=== PATIENT | male | born 1965 | race African-American/Black ===

== ENCOUNTER 2017-01-28 12:13 | Inpatient (IN) | payer MEDICAID ==
[~2017-01-28] VITALS: Ht 167.6 cm; Wt 90.3 kg
[~2017-01-28 12:13] MED LIST: ASPI81CH43 PO; Atorvastatin Calcium PO; CAR3125T PO; ENA2.5T PO; FUR40T PO; POT8T PO
[2017-01-28 12:49] LABS: Basophils # (auto) 0 uL; Basophils % (auto) 0.2 % (0.0-2.0); CONDITION AutoValidated; Eosinophils # (auto) 0.1 uL; Eosinophils % (auto) 0.6 % (0.0-7.0); Hematocrit 40.9 % (41.0-53.0); Hemoglobin 13.9 g/dL (13.5-17.5); Lymphocytes # (auto) 0.6 uL; Lymphocytes % (auto) 6.8 % (10.0-50.0); Mean Corpuscular Hemoglobin 32.2 pg (28.0-32.0); Mean Corpuscular Hgb Conc. 33.8 g/dL (32.0-36.0); Mean Corpuscular Volume 95.2 fL (80.0-100.0); Mean Platelet Volume 10.9 fL (7.4-10.4); Monocytes # (auto) 0.2 uL; Monocytes % (auto) 2.1 % (0.0-12.0); Neutrophils # (auto) 8.1 uL; Neutrophils % (auto) 90.3 % (37.0-80.0); Platelet Count (auto) 230 10^3/uL (140-450); Red Cell Distribution Width 14.5 % (11.6-16.0); SUSPECT SEE PRINTOUT
[2017-01-28 13:23] LABS: Giant Platelets Few; Platelet Estimate Adequate
[2017-01-28 13:29] LABS: Albumin 3.6 g/dL (3.4-5.0); BUN/Creatinine Ratio 14.8; Bilirubin, Total 0.3 mg/dL (0.2-1.0); Calcium 8.9 mg/dL (8.5-10.1); Magnesium 2.3 mg/dL (1.6-2.6); Potassium 4.2 mmol/L (3.5-5.1); Total Protein 7.3 g/dL (6.4-8.2)
[2017-01-28] MEDS ORDERED: HYDROmorphone HCL 2 MG/ML VL IM ONE (15:45)
[2017-01-28] MEDS ORDERED: ASPirin 81 mg TAB PO ONE (15:45)
[2017-01-28] MEDS ORDERED: MORPHINE SULFATE 4 MG/ML SYRG IV ONE (15:45)
[2017-01-28] MEDS ORDERED: ONDANSETRON HCL 4 MG/2 ML VIAL IM ONE (15:45)
[2017-01-28] MEDS ORDERED: ONDANSETRON HCL 4 MG/2 ML VIAL IV ONE (15:45)
[2017-01-28] MEDS ORDERED: diphenhdrAMINE HCL 50 MG/1 ML VL IV ONE (16:30)
[2017-01-28] MEDS ORDERED: LACTULOSE 20Gm/30ML SOLN PO PRN (17:30)
[2017-01-28] MEDS ORDERED: HYDROcodone-ACET 5/325MG TAB PO PRN (17:30)
[2017-01-28] MEDS ORDERED: LORazepam 0.5 MG TAB PO PRN (17:30)
[2017-01-28] MEDS ORDERED: PROMETHAZINE HCL 25 MG/ML 1ML IV PRN (17:30)
[2017-01-28] MEDS ORDERED: TEMAZEPAM 15 MG CAP PO PRN (17:30)
[2017-01-28] MEDS ORDERED: NITROGLYCERIN 0.4 MG SL TAB SL PRN (17:30)
[2017-01-28] MEDS ORDERED: MORPHINE SULF INJ 2 MG/ML SYRINGE 1ML IV PRN ×2 (17:30)
[2017-01-28] MEDS ORDERED: ACETAMINOPHEN 500 MG TAB PO PRN (17:30)
[2017-01-28] MEDS: SODIUM CHLORIDE 0.9% 1,000 ML IV SCH ×2 (17:46→18:06)
[2017-01-28] MEDS ORDERED: POTASSIUM CHLORIDE 8 MEQ TAB PO ONE (18:00)
[2017-01-28] MEDS ORDERED: FUROSEMIDE 40 MG TAB PO ONE (18:00)
[2017-01-28] MEDS ORDERED: ENOXAPARIN SOD 40 MG/0.4 ML SYRINGE SC SCH (18:00)
[2017-01-28] MEDS: PANTOPRAZOLE 40 MG TAB PO SCH (18:13)
[2017-01-28] MEDS ORDERED: SODIUM CHLORIDE 0.9% 1,000 ML IV ONE (18:30)
[2017-01-28 19:47] LABS: B-Type Natriuretic Peptide 213.64 pg/mL (0-100)
[2017-01-28 19:48] LABS: Temperature: 23.4 C (20.0-25.0)
[2017-01-28 20:00] VITALS: BP 109/70
[2017-01-28 20:19] VITALS: BP 109/70
[2017-01-28] MEDS: CARVEDILOL 3.125 MG TAB PO SCH (21:48)
[2017-01-28 22:00] VITALS: BP 111/69
[2017-01-28] MEDS ORDERED: ENALAPRIL MALEATE 2.5 MG TAB PO SCH (22:00)
[2017-01-28] MEDS ORDERED: ATORVASTATIN 20 MG TAB PO SCH ×2 (22:00)
[2017-01-28] MEDS ORDERED: METOPROLOL TARTRATE 25 MG TAB PO SCH (22:00)
[2017-01-29 05:00] VITALS: BP 106/55
[2017-01-29 08:00] VITALS: BP 106/69
[2017-01-29 09:37] VITALS: BP 106/69
[2017-01-29] MEDS: PANTOPRAZOLE 40 MG TAB PO SCH (09:48)
[2017-01-29] MEDS: CARVEDILOL 3.125 MG TAB PO SCH (10:00)
[2017-01-29] MEDS ORDERED: NITROGLYCERIN 0.2MG/HR TOPICAL PATCH TD SCH (10:00)
[2017-01-29] MEDS ORDERED: FUROSEMIDE 40 MG TAB PO SCH (10:00)
[2017-01-29] MEDS ORDERED: POTASSIUM CHLORIDE 8 MEQ TAB PO SCH (10:00)
[2017-01-29] MEDS ORDERED: ASPirin 81 mg TAB PO SCH ×2 (10:00)
[2017-01-29 13:16] VITALS: BP 103/69
[2017-01-29 14:11] VITALS: BP 105/59
== END 2017-01-29 15:30 | disposition home or self-care (01) | DRG 198 ==
LOC: ER 12:15 → TELE 12:16 → TELE-EAST 19:35
PROVIDERS: ADMIT Internal Medicine; ATTEND Internal Medicine
DX: R07.9 Chest pain, unspecified (principal); I24.9 Acute ischemic heart disease, unspecified; I11.0 Hypertensive heart disease with heart failure; I50.9 Heart failure, unspecified; E78.5 Hyperlipidemia, unspecified; R00.1 Bradycardia, unspecified; Z80.9 Family history of malignant neoplasm, unspecified; Z82.49 Family history of ischemic heart disease and other diseases of the circulatory system
CPT/HCPCS: 36415; 71020; 80053; 80061; 80162; 82550; 83735; 83880; 84484; 85025; 85379; 85652; 86141; 93005; 96372; 96374; 96375; 99291; J2405

== ENCOUNTER 2017-02-20 16:41 | Inpatient (IN) | payer MEDICAID ==
[~2017-02-20] VITALS: Ht 167.6 cm; Wt 96.2 kg
[~2017-02-20 16:41] MED LIST changes: -CAR3125T PO
[2017-02-20] MEDS ORDERED: ALBUTEROL SULF 2.5 MG/0.5ML(0.5%) NEB SOLN HHN ONE (17:30)
[2017-02-20] MEDS ORDERED: IPRATROPIUM BROM 0.5 MG/2.5ML INH SOL HHN ONE (17:30)
[2017-02-20] MEDS ORDERED: methylPREDNISolone SOD SUCC 125 MG/2 ML VL IV ONE (17:30)
[2017-02-20 17:51] LABS: Basophils # (auto) 0 uL; Basophils % (auto) 0.9 % (0.0-2.0); CONDITION Y; Eosinophils # (auto) 0.3 uL; Eosinophils % (auto) 5.5 % (0.0-7.0); Hematocrit 40.8 % (41.0-53.0); Hemoglobin 13.8 g/dL (13.5-17.5); Lymphocytes # (auto) 0.7 uL; Lymphocytes % (auto) 12.8 % (10.0-50.0); Mean Corpuscular Hgb Conc. 33.7 g/dL (32.0-36.0); Mean Corpuscular Volume 94.9 fL (80.0-100.0); Mean Platelet Volume 11.3 fL (7.4-10.4); Monocytes # (auto) 0.4 uL; Monocytes % (auto) 7.8 % (0.0-12.0); Neutrophils # (auto) 3.8 uL; Platelet Count (auto) 250 10^3/uL (140-450); Red Cell Distribution Width 14.5 % (11.6-16.0); SUSPECT SEE PRINTOUT; White Blood Cell 5.2 10^3/uL (4.4-10.8)
[2017-02-20 18:39] LABS: Albumin 3.5 g/dL (3.4-5.0); Alkaline Phosphatase 113 U/L (45-117); Anion Gap 9 (5-15); Aspartate Aminotransferase 18 U/L (15-37); BUN/Creatinine Ratio 9.2; Bilirubin, Total 0.4 mg/dL (0.2-1.0); Blood Urea Nitrogen 14 mg/dL (7-18); Calcium 8.9 mg/dL (8.5-10.1); Carbon Dioxide 25 mmol/L (21-32); Chloride 104 mmol/L (98-107); GFR African American 62 mL/min; GFR Non-African American 52 mL/min; Glucose 118 mg/dL (74-106); Magnesium 2.3 mg/dL (1.6-2.6); Potassium 3.7 mmol/L (3.5-5.1); Sodium 138 mmol/L (136-145); Total Protein 7.5 g/dL (6.4-8.2)
[2017-02-20] MEDS ORDERED: HYDROcodone-ACET 5/325MG TAB PO PRN (18:45)
[2017-02-20] MEDS ORDERED: MORPHINE SULF INJ 2 MG/ML SYRINGE 1ML IV PRN ×2 (18:45)
[2017-02-20] MEDS ORDERED: NITROGLYCERIN 0.4 MG SL TAB SL PRN (18:45)
[2017-02-20] MEDS ORDERED: ACETAMINOPHEN 500 MG TAB PO PRN (18:45)
[2017-02-20] MEDS ORDERED: PROMETHAZINE HCL 25 MG/ML 1ML IV PRN (18:45)
[2017-02-20] MEDS ORDERED: TEMAZEPAM 15 MG CAP PO PRN (18:45)
[2017-02-20] MEDS ORDERED: LORazepam 0.5 MG TAB PO PRN (18:45)
[2017-02-20 19:57] LABS: B-Type Natriuretic Peptide 417.74 pg/mL (0-100)
[2017-02-20 19:58] LABS: Temperature: 23.1 C (20.0-25.0)
[2017-02-20] MEDS: NITROGLYCERIN 0.2MG/HR TOPICAL PATCH TD SCH (19:59)
[2017-02-20 21:50] VITALS: BP 112/56
[2017-02-20] MEDS ORDERED: ENALAPRIL MALEATE 2.5 MG TAB PO SCH (22:00)
[2017-02-20] MEDS ORDERED: ATORVASTATIN 20 MG TAB PO SCH (22:00)
[2017-02-20 22:22] VITALS: BP 112/56
[2017-02-20] MEDS: METOPROLOL TARTRATE 25 MG TAB PO SCH (22:30)
[2017-02-20] MEDS: SODIUM CHLOR 0.9% PF (SALINE LOCK) 10ML VIAL IV SCH (22:30)
[2017-02-21] MEDS: guaiFENesin 200 MG/10 ML UD PO PRN ×2 (00:46→17:12)
[2017-02-21 05:23] VITALS: BP 111/67
[2017-02-21] MEDS: SODIUM CHLOR 0.9% PF (SALINE LOCK) 10ML VIAL IV SCH ×2 (05:32→14:00)
[2017-02-21 06:15] LABS: Cholesterol 195 mg/dL (< 200); HDL Cholesterol 67 mg/dL (40-59); LDL Cholesterol 115 mg/dL (< 100); Triglycerides 51 mg/dL (< 150)
[2017-02-21 08:00] VITALS: BP 94/56
[2017-02-21 09:00] VITALS: BP 94/56
[2017-02-21] MEDS: NITROGLYCERIN 0.2MG/HR TOPICAL PATCH TD SCH (10:00)
[2017-02-21] MEDS ORDERED: ENOXAPARIN SOD 40 MG/0.4 ML SYRINGE SC SCH (10:00)
[2017-02-21] MEDS ORDERED: FUROSEMIDE 40 MG TAB PO SCH (10:00)
[2017-02-21] MEDS ORDERED: PANTOPRAZOLE 40 MG TAB PO SCH (10:00)
[2017-02-21] MEDS ORDERED: POTASSIUM CHLORIDE 8 MEQ TAB PO SCH (10:00)
[2017-02-21] MEDS: METOPROLOL TARTRATE 25 MG TAB PO SCH (10:00)
[2017-02-21] MEDS ORDERED: ASPirin 81 mg TAB PO SCH (10:00)
[2017-02-21 13:00] VITALS: BP 123/82
[2017-02-21 17:00] VITALS: BP 99/42
[2017-02-21] MEDS ORDERED: LEVOFLOXACIN 500 MG TAB PO ONE (17:00)
[2017-02-21] MEDS ORDERED: CEPHALEXIN 250 MG CAP PO ONE (18:30)
[2017-02-21 18:52] VITALS: BP 94/56
== END 2017-02-21 22:30 | disposition home or self-care (01) | DRG 140 ==
LOC: ER 16:46 → TELE 16:47 → TELE-WESTW 21:50
PROVIDERS: ADMIT Internal Medicine; ATTEND Internal Medicine
DX: J44.0 Chronic obstructive pulmonary disease with (acute) lower respiratory infection (principal); I11.0 Hypertensive heart disease with heart failure; I42.9 Cardiomyopathy, unspecified; I50.9 Heart failure, unspecified; J20.9 Acute bronchitis, unspecified; Z82.49 Family history of ischemic heart disease and other diseases of the circulatory system; Z80.9 Family history of malignant neoplasm, unspecified
CPT/HCPCS: 36415; 71020; 80053; 80061; 82550; 83735; 83880; 84484; 85025; 85379; 85652; 86141; 87070; 87081; 87205; 93005; 94644; 94761; 96374

== ENCOUNTER 2017-11-22 16:06 | Emergency (ER) | payer MEDICAID ==
[~2017-11-22] VITALS: Ht 167.6 cm; Wt 90.7 kg
[2017-11-22 16:46] VITALS: BP 112/68
[2017-11-22] MEDS ORDERED: TETANUS-DIPTH-ACEL PERTUSSIS 0.5ML SYRG IM ONE (17:15)
== END 2017-11-22 17:21 | disposition home or self-care (01) ==
LOC: ER 16:14
DX: L03.811 Cellulitis of head [any part, except face] (principal); I11.0 Hypertensive heart disease with heart failure; I50.9 Heart failure, unspecified; Z79.899 Other long term (current) drug therapy
CPT/HCPCS: 90471; 90715

== ENCOUNTER 2018-06-24 18:09 | Inpatient (IN) | payer MEDICAID ==
[~2018-06-24] VITALS: Ht 182.9 cm; Wt 102.5 kg
[2018-06-24 19:26] LABS: Basophils # (auto) 0.1 uL; Basophils % (auto) 1.1 % (0.0-2.0); Eosinophils # (auto) 0 uL; Eosinophils % (auto) 0.6 % (0.0-7.0); Hematocrit 31.7 % (41.0-53.0); Hemoglobin 9.4 g/dL (13.5-17.5); Lymphocytes # (auto) 0.6 uL; Lymphocytes % (auto) 8.8 % (10.0-50.0); Mean Corpuscular Hemoglobin 23.6 pg (28.0-32.0); Mean Corpuscular Hgb Conc. 29.8 g/dL (32.0-36.0); Mean Corpuscular Volume 79.2 fL (80.0-100.0); Monocytes # (auto) 0.5 uL; Neutrophils # (auto) 5.9 uL; Neutrophils % (auto) 82.5 % (37.0-80.0); Nucleated Red Blood Cells % 0.2 %; Platelet Count (auto) 212 10^3/uL (140-450); Red Cell Distribution Width 19.7 % (11.8-14.3); White Blood Cell 7.2 10^3/uL (4.4-10.8)
[2018-06-24 19:42] LABS: INR 1.26 (0.9-1.15); Partial Thromboplastin Time 29.1 sec (23.78-33.04); Prothrombin Time 13.3 sec (9.27-12.13)
[2018-06-24 19:55] LABS: Alanine Aminotransferase 35 U/L (16-61); Albumin 3.6 g/dL (3.4-5.0); Anion Gap 9 (5-15); Blood Urea Nitrogen 25 mg/dL (7-18); Calcium 8.7 mg/dL (8.5-10.1); Carbon Dioxide 19 mmol/L (21-32); Chloride 112 mmol/L (98-107); Glucose 89 mg/dL (74-106); Potassium 4.6 mmol/L (3.5-5.1); Sodium 140 mmol/L (136-145)
[2018-06-24 20:00] LABS: Alkaline Phosphatase 122 U/L (45-117); Aspartate Aminotransferase 33 U/L (15-37); Bilirubin, Total 1.1 mg/dL (0.2-1.0); GFR African American 47 mL/min; GFR Non-African American 39 mL/min; Total Protein 7.6 g/dL (6.4-8.2)
[2018-06-24] MEDS ORDERED: LORazepam 0.5 MG TAB PO ONE (20:00)
[2018-06-24] MEDS ORDERED: FUROSEMIDE 40 MG/4 ML VIAL IV ONE (23:15)
[2018-06-25] MEDS ORDERED: ALBUTEROL SULF 2.5 MG/0.5ML(0.5%) NEB SOLN ONE (00:25)
[2018-06-25] MEDS ORDERED: IPRATROPIUM BROM 0.5 MG/2.5ML INH SOL ONE (00:25)
[2018-06-25] MEDS ORDERED: IPRATROPIUM BROM 0.5 MG/2.5ML INH SOL NEB ONE (00:30)
[2018-06-25] MEDS ORDERED: ALBUTEROL SULF 2.5 MG/0.5ML(0.5%) NEB SOLN NEB ONE (00:30)
[2018-06-25] MEDS ORDERED: FUROSEMIDE 40 MG/4 ML VIAL IV ONE (01:00)
[2018-06-25] MEDS ORDERED: ACETAMINOPHEN 500 MG TAB PO PRN (01:30)
[2018-06-25] MEDS ORDERED: LORazepam 2MG/ML-1ML VIAL IV PRN (01:30)
[2018-06-25] MEDS ORDERED: MORPHINE SULFATE 4 MG/ML SYR/VIAL IV ONE (05:15)
[2018-06-25] MEDS ORDERED: ONDANSETRON HCL 4 MG/2 ML VIAL IV ONE (05:15)
[2018-06-25] MEDS: FUROSEMIDE 40 MG/4 ML VIAL IV SCH ×2 (05:50→18:58)
[2018-06-25] MEDS ORDERED: MORPHINE SULFATE 4 MG/ML SYR/VIAL IV PRN (06:00)
[2018-06-25 06:23] LABS: Eosinophils # (auto) 0.1 uL; Monocytes # (auto) 0.5 uL; Monocytes % (auto) 7.5 % (0.0-12.0); Neutrophils # (auto) 4.8 uL; Nucleated Red Blood Cells % 0.2 %; Red Cell Distribution Width 19.4 % (11.8-14.3); White Blood Cell 6.3 10^3/uL (4.4-10.8)
[2018-06-25 06:25] LABS: Basophils # (auto) 0 uL; Basophils % (auto) 0.6 % (0.0-2.0); Eosinophils % (auto) 2.3 % (0.0-7.0); Hematocrit 30.8 % (41.0-53.0); Hemoglobin 9.6 g/dL (13.5-17.5); Lymphocytes # (auto) 0.9 uL; Lymphocytes % (auto) 13.7 % (10.0-50.0); Mean Corpuscular Hgb Conc. 31.4 g/dL (32.0-36.0); Mean Corpuscular Volume 76.6 fL (80.0-100.0); Neutrophils % (auto) 75.9 % (37.0-80.0); Platelet Count (auto) 222 10^3/uL (140-450); Red Blood Cells 4.01 10^6/uL (4.5-5.90)
[2018-06-25 06:29] LABS: BUN/Creatinine Ratio 13.1; Calcium 8.9 mg/dL (8.5-10.1); Potassium 4.3 mmol/L (3.5-5.1)
[2018-06-25 09:12] LABS: Urine Bacteria NONE SEEN /hpf (None Seen); Urine Blood TRACE /uL (Negative); Urine Mucus FEW (None Seen); Urine Specific Gravity 1.009 (1.001-1.035); Urine WBC 1 /hpf (0 - 3)
[2018-06-25] MEDS ORDERED: FURO40TA4 PO (10:29)
[2018-06-25 10:30] VITALS: BP 111/76
[2018-06-25] MEDS: CARVEDILOL 3.125 MG TAB PO SCH ×2 (11:14→22:26)
[2018-06-25] MEDS: LISINOPRIL 20 MG TAB PO SCH (11:15)
[2018-06-25] MEDS: DIGOXIN 0.125 MG TAB PO SCH (11:16)
[2018-06-25 13:21] VITALS: BP 118/78
[2018-06-25 17:15] LABS: Alcohol, Urine < 3.0 mg/dL (0-5); Amphetamine Screen, Urine POSITIVE (NEGATIVE); Barbiturate Scree,Urine NEGATIVE (NEGATIVE); Benzodiazephine Screen, Urine NEGATIVE (NEGATIVE); Cannabinoid Screen, Urine NEGATIVE (NEGATIVE); Cocaine Screen, Urine NEGATIVE (NEGATIVE); Opiate Scree,Urine POSITIVE (NEGATIVE); Phencyclidine Screen, Urine NEGATIVE (NEGATIVE)
[2018-06-25 17:20] VITALS: BP 107/64
[2018-06-25 20:00] VITALS: BP 116/67
[2018-06-25 22:00] VITALS: BP 116/67
[2018-06-26 05:26] VITALS: BP 108/67
[2018-06-26 05:43] LABS: Basophils # (auto) 0 uL; Basophils % (auto) 0.4 % (0.0-2.0); Lymphocytes # (auto) 0.4 uL; Monocytes # (auto) 0.4 uL; Monocytes % (auto) 3.8 % (0.0-12.0); Neutrophils # (auto) 9.1 uL; Nucleated Red Blood Cells % 0.1 %
[2018-06-26 05:46] LABS: Eosinophils # (auto) 0.2 uL; Eosinophils % (auto) 1.9 % (0.0-7.0); Hematocrit 30.4 % (41.0-53.0); Hemoglobin 9.5 g/dL (13.5-17.5); Lymphocytes % (auto) 4.1 % (10.0-50.0); Mean Corpuscular Hemoglobin 24.1 pg (28.0-32.0); Mean Corpuscular Hgb Conc. 31.3 g/dL (32.0-36.0); Mean Corpuscular Volume 76.8 fL (80.0-100.0); Neutrophils % (auto) 89.8 % (37.0-80.0); Platelet Count (auto) 193 10^3/uL (140-450); Red Blood Cells 3.96 10^6/uL (4.5-5.90); Red Cell Distribution Width 19.2 % (11.8-14.3); White Blood Cell 10.1 10^3/uL (4.4-10.8)
[2018-06-26 06:04] LABS: Potassium 4.3 mmol/L (3.5-5.1)
[2018-06-26 06:09] LABS: BUN/Creatinine Ratio 14.4; Calcium 8.3 mg/dL (8.5-10.1); Magnesium 2.2 mg/dL (1.6-2.6)
[2018-06-26] MEDS: FUROSEMIDE 40 MG/4 ML VIAL IV SCH (06:33)
[2018-06-26 08:00] VITALS: BP 118/69
[2018-06-26] MEDS: LISINOPRIL 20 MG TAB PO SCH (09:20)
[2018-06-26] MEDS: DIGOXIN 0.125 MG TAB PO SCH (09:20)
[2018-06-26 09:21] VITALS: BP 118/69
[2018-06-26] MEDS: CARVEDILOL 3.125 MG TAB PO SCH (09:21)
[2018-06-26] MEDS ORDERED: POTA10TA51 PO (12:41)
[2018-06-26] MEDS ORDERED: DIGO0.1262 PO (12:41)
[2018-06-26] MEDS ORDERED: CAR3125T PO (12:41)
[2018-06-26] MEDS ORDERED: FURO80TA3 PO (12:41)
[2018-06-26 14:26] VITALS: BP 104/63
[2018-06-26 17:02] VITALS: BP 102/66
[2018-06-27] MEDS ORDERED: FUROSEMIDE 40 MG/4 ML VIAL IV SCH (10:00)
== END 2018-06-26 20:00 | disposition home or self-care (01) | DRG 194 ==
LOC: ER 18:09 → EDBD 18:09 → OVERFLOW 18:10 → TELE-WESTW 06-25 10:05
PROVIDERS: ADMIT Nurse Practitioner Family; ATTEND Internal Medicine
DX: I11.0 Hypertensive heart disease with heart failure (principal); J96.01 Acute respiratory failure with hypoxia; N17.0 Acute kidney failure with tubular necrosis; E87.2 Acidosis; E66.01 Morbid (severe) obesity due to excess calories; D50.9 Iron deficiency anemia, unspecified; F15.10 Other stimulant abuse, uncomplicated; I50.43 Acute on chronic combined systolic (congestive) and diastolic (congestive) heart failure; I42.0 Dilated cardiomyopathy; Z91.14 Patient's other noncompliance with medication regimen; F41.9 Anxiety disorder, unspecified; N14.1 Nephropathy induced by other drugs, medicaments and biological substances; T50.1X5A Adverse effect of loop [high-ceiling] diuretics, initial encounter; Z82.49 Family history of ischemic heart disease and other diseases of the circulatory system; Y92.89 Other specified places as the place of occurrence of the external cause; Z68.30 Body mass index [BMI] 30.0-30.9, adult
CPT/HCPCS: 36415; 36600; 51702; 71046; 80048; 80053; 80307; 81001; 82805; 82962; 83735; 83880; 84443; 84484; 85025; 85379; 85610; 85730; 93005; 93306; 94640; 96374; 96375; 96376; G0378; J2405

== ENCOUNTER 2018-10-31 01:46 | Emergency (ER) | payer MEDICAID ==
[~2018-10-31] VITALS: Ht 185.4 cm; Wt 117.9 kg
[2018-10-31 01:46] VITALS: BP 0/0
[~2018-10-31 01:46] MED LIST changes: +CAR3125T PO; +DIGO0.1262 PO; -FUR40T PO; +FURO80TA3 PO; +POTA10TA51 PO
[2018-10-31] MEDS ORDERED: EPINEPHrine HCL 1 MG/10 ML SYRG IV ONE (01:58)
[2018-10-31] MEDS ORDERED: SODIUM BICARBONATE 8.4% INJ 50ML SYRINGE IV ONE (01:58)
== END 2018-10-31 06:45 | disposition expired ==
LOC: EDBD 01:46 → ER 01:57
DX: I46.9 Cardiac arrest, cause unspecified (principal); I11.0 Hypertensive heart disease with heart failure; I50.9 Heart failure, unspecified; Z79.82 Long term (current) use of aspirin; Z79.899 Other long term (current) drug therapy
CPT/HCPCS: 92950; 99285; J0171